=== PATIENT | male | born 1975 | race Two or more races ===

== ENCOUNTER 2016-11-27 00:05 | Emergency (ER) | payer MEDICARE, MEDICAID ==
[~2016-11-27] VITALS: Ht 198.1 cm; Wt 100.0 kg
[2016-11-27] MEDS ORDERED: SODIUM CHLORIDE 0.9% 1,000 ML IV ONE (00:31)
[2016-11-27] MEDS ORDERED: LORAZEPAM 2MG/ML CPJ IV STA (00:31)
[2016-11-27 00:53] LABS: BASOPHILS % 0.6 % (0.0-2.0); EOSINOPHILS % 0.3 % (0.0-5.0); HEMATOCRIT. 44.2 % (42.0-52.0); HEMOGLOBIN. 15.6 g/dL (14.0-18.0); LYMPHOCYTES % 25.8 % (20.0-50.0); MEAN CORPUSCULAR HEMOGLOBIN 30.1 pg (28.0-32.0); MEAN CORPUSCULAR VOLUME 85.2 fL (80.0-94.0); MEAN PLATELET VOLUME 7.2 fl (7.4-10.4); MONOCYTES % 9.3 % (2.0-8.0); PLATELET 459 x1000/uL (130-400); RED BLOOD CELL COUNT 5.19 mill/uL (4.7-6.1); RED CELL DISTRIBUTION WIDTH 13.8 % (11.6-14.6)
[2016-11-27 00:59] LABS: CHLORIDE 103 mEq/L (98-107)
[2016-11-27 01:06] LABS: AMMONIA 17 uMol/L (<32)
[2016-11-27 01:08] LABS: CARBON DIOXIDE 24 mEq/L (21-32); CREATINE KINASE 613 IU/L (39-308); ETHANOL BLOOD < 10 mg/dL
[2016-11-27 02:00] LABS: CLARITY URINE TURBID (CLEAR); COLOR URINE RED (YELLOW); GLUCOSE URINE NEGATIVE (NEGATIVE); KETONES URINE NEGATIVE (NEGATIVE); LEUKOCYTE ESTERASE URINE 2+ (NEGATIVE); NITRITE URINE POSITIVE (NEGATIVE); OCCULT BLOOD URINE TRACE (NEGATIVE); PROTEIN URINE TRACE (NEGATIVE); SPECIFIC GRAVITY URINE 1.036 (1.005-1.030)
[2016-11-27 02:10] LABS: *AMPHETAMINES SCREEN URINE PRESUMTIVE POSITIVE (NEGATIVE); *BARBITURATES SCREEN URINE NEGATIVE (NEGATIVE); *BENZODIAZEPINES SCREEN URINE NEGATIVE (NEGATIVE); *COCAINE SCREEN URINE NEGATIVE (NEGATIVE); CANNABINOID URINE SCREEN NEGATIVE (NEGATIVE); METHADONE URINE SCREEN NEGATIVE (NEGATIVE); OPIATES URINE SCREEN NEGATIVE (NEGATIVE); PHENCYCLIDINE URINE SCREEN NEGATIVE (NEGATIVE)
[2016-11-27] MEDS ORDERED: SODIUM CHLORIDE 0.9% 1000ML BAG (SEPSIS BOLUS) IV NR (05:15)
[2016-11-27] MEDS ORDERED: WATER IV NR (05:15)
[2016-11-27] MEDS ORDERED: AZITHROMYCIN IV NR (05:15)
[2016-11-27] MEDS ORDERED: CEFTRIAXONE 1 G PREMIX 50 ML IV NR (05:15)
[2016-11-27] MEDS ORDERED: DEXT 5% IV NR (05:15)
[2016-11-27] MEDS ORDERED: AZITHROMYCIN 500 MG TABLET PO ONE (07:00)
[2016-11-27 10:29] VITALS: BP 113/80
== END 2016-11-27 11:33 | disposition home or self-care (01) ==
LOC: ER 00:06
DX: N39.0 Urinary tract infection, site not specified (principal); R41.82 Altered mental status, unspecified; F15.10 Other stimulant abuse, uncomplicated; R19.7 Diarrhea, unspecified; F17.200 Nicotine dependence, unspecified, uncomplicated; R31.9 Hematuria, unspecified
CPT/HCPCS: 36415; 70450; 74176; 80053; 80305; 80307; 80329; 81001; 82140; 82550; 83605; 83690; 85025; 96361; 96365; 96375; 99285; G0482; J0696; J2060; J7030; J0456; J7060

== ENCOUNTER 2016-12-09 03:54 | Emergency (ER) | payer MEDICARE, MEDICAID ==
[~2016-12-09] VITALS: Ht 198.1 cm; Wt 104.0 kg
[2016-12-09 04:35] VITALS: BP 121/80
[2016-12-09] MEDS ORDERED: SODIUM CHLORIDE 0.9% 1,000 ML IV ONE (11:15)
[2016-12-09 12:12] LABS: GLUCOSE URINE NEGATIVE (NEGATIVE); KETONES URINE TRACE (NEGATIVE); LEUKOCYTE ESTERASE URINE NEGATIVE (NEGATIVE); NITRITE URINE NEGATIVE (NEGATIVE); OCCULT BLOOD URINE NEGATIVE (NEGATIVE); PROTEIN URINE 1+ (NEGATIVE); SPECIFIC GRAVITY URINE 1.027 (1.005-1.030); UROBILINOGEN URINE 0.2 E.U./dL (0.2-1.0)
[2016-12-09 12:16] LABS: CLARITY URINE CLOUDY (CLEAR); COLOR URINE DARK YELLOW (YELLOW)
[2016-12-09 12:25] LABS: *AMPHETAMINES SCREEN URINE PRESUMTIVE POSITIVE (NEGATIVE); *BARBITURATES SCREEN URINE NEGATIVE (NEGATIVE); *BENZODIAZEPINES SCREEN URINE NEGATIVE (NEGATIVE); *COCAINE SCREEN URINE NEGATIVE (NEGATIVE); CANNABINOID URINE SCREEN PRESUMTIVE POSITIVE (NEGATIVE); METHADONE URINE SCREEN NEGATIVE (NEGATIVE); OPIATES URINE SCREEN NEGATIVE (NEGATIVE); PHENCYCLIDINE URINE SCREEN NEGATIVE (NEGATIVE)
== END 2016-12-09 12:35 | disposition left against medical advice (07) ==
LOC: ER 03:54
DX: R42 Dizziness and giddiness (principal); E11.9 Type 2 diabetes mellitus without complications; F31.9 Bipolar disorder, unspecified; F12.10 Cannabis abuse, uncomplicated; F15.10 Other stimulant abuse, uncomplicated; F19.10 Other psychoactive substance abuse, uncomplicated
CPT/HCPCS: 71010; 80305; 81001; 99285; J7030

== ENCOUNTER 2018-12-27 14:15 | Emergency (ER) | payer MEDICARE, OTHER ==
[~2018-12-27] VITALS: Ht 198.1 cm; Wt 105.0 kg
[2018-12-27] MEDS ORDERED: ACETAMINOPHEN 325MG TABLET PO ONE (15:00)
[2018-12-27] MEDS ORDERED: IBUPROFEN 600MG TABLET PO ONE (15:00)
[2018-12-27] MEDS ORDERED: LIDOCAINE HCL/PF 1% 10 MG/ML 5ML VIAL IJ ONE (15:00)
[2018-12-27] MEDS ORDERED: BACITRACIN ZINC OINT UDPKT TOP ONE (15:00)
[2018-12-27 16:25] VITALS: BP 132/88
== END 2018-12-27 16:51 | disposition left against medical advice (07) ==
LOC: ER 14:15
DX: L03.011 Cellulitis of right finger (principal); L02.511 Cutaneous abscess of right hand; F12.10 Cannabis abuse, uncomplicated
CPT/HCPCS: 99284; J3490; 96374; 99283